=== PATIENT | female | born 1990 | race Caucasian/White ===

== ENCOUNTER → 2016-03-13 | Outpatient (REF) ==
[~2016-03-13] MED LIST: FIORICET 325 MG1 TA1 PO; MIRENA52 MG
== END ==
LOC: WSOH 13:41 → WSPT 14:30
DX: Z02.89 Encounter for other administrative examinations (principal)

== ENCOUNTER → 2016-03-19 | Outpatient (REF) | LOC: WSOH 12:50 | DX: Z02.89 Encounter for other administrative examinations (principal) ==

== ENCOUNTER 2016-11-19 16:47 | Emergency (ER) | payer BC ==
[~2016-11-19] VITALS: Ht 170.2 cm; Wt 95.5 kg
[2016-11-19 16:49] VITALS: TEMP 98.1
[2016-11-19] MEDS ORDERED: MIRENA52 MG (16:51)
[2016-11-19] MEDS ORDERED: FIORICET 325 MG1 TA1 PO (19:39)
[2016-11-19 19:43] VITALS: BP 108/66; PULSE 60
== END 2016-11-19 19:50 | disposition home or self-care (01) ==
LOC: COL.ER 16:47
DX: G43.909 Migraine, unspecified, not intractable, without status migrainosus (principal)
CPT/HCPCS: J1100; J1200; J2765; J7030